=== PATIENT | female | born 1960 | race Caucasian/White ===

== ENCOUNTER 2019-04-14 20:04 | Emergency (ER) | payer BC ==
[2019-04-14 20:08] VITALS: RESP 18; TEMP 98.5
[2019-04-14] MEDS ORDERED: ONDANSETRON 4 MG/2 ML VIAL IVP STA (20:27)
[2019-04-14] MEDS ORDERED: KETOROLAC 30 MG/ML 1 ML VIAL IVP STA (20:27)
[2019-04-14] MEDS ORDERED: SODIUM CHLORIDE 0.9% 500 ML 500 ML IV STA (20:27)
[2019-04-14] MEDS ORDERED: SODIUM CHLORIDE 0.9% 1,000 ML IV STA (20:27)
--- NOTE | 2019-04-14 20:36 | ED ---
Abdominal Pain HPI - General Chief Complaint: Abdominal Pain Stated Complaint: Abd pain Time Seen by Provider: 04/14/19 20:22 Source: patient Mode of arrival: ambulatory Limitations: no limitations - History of Present Illness Initial Comments: 59-year-old female patient presents to the emergency department today for evaluation of left flank and left-sided abdominal pain. Patient states that pain started 2 days ago and has been worsening. States that today she was having nausea and vomiting. Unable to keep down any food or fluids. States she has been chilled but denies fevers. States that she did have a singular episode of hematuria couple of days ago the pain started shortly after. He states that today the urine is brown in color. Denies any history of kidney stones or similar symptoms. She has had cholecystectomy and 2 hernia repairs. States she is having normal bowel movements. She denies any dysuria or urinary frequency. She denies chest pain, shortness of breath, or sweats. Patient denies any recent rash, numbness, tingling, dizziness, weakness, headache, visual changes, or any other complaints. - Related Data Home Medications Medication Instructions Recorded Confirmed Levothyroxine Sodium [Synthroid] 88 mcg PO DAILY 04/14/19 04/14/19 Multivitamins, Thera [Multivitamin 1 tab PO DAILY 04/14/19 04/14/19 (formulary)] [place]-3 Fatty Acids/Fish Oil [Fish 1 cap PO DAILY 04/14/19 04/14/19 Oil 1,000 mg Softgel] Previous Rx's Medication Instructions Recorded Ibuprofen [Motrin] 600 mg PO Q8HR PRN #30 tab 04/14/19 Ondansetron [Zofran ODT] 4 mg PO Q8HR PRN #10 tab 04/14/19 Tamsulosin HCl [Flomax] 0.4 mg PO DAILY #7 cap 04/14/19 Allergies Allergy/AdvReac Type Severity Reaction Status Date / Time No Known Allergies Allergy Verified 04/14/19 20:39 Review of Systems ROS Statement: Those systems with pertinent positive or pertinent negative responses have been documented in the HPI. ROS Other: All systems not noted in ROS Statement are negative. Past Medical History Past Medical History: Thyroid Disorder History of Any Multi-Drug Resistant Organisms: None Reported Past Surgical History: Cholecystectomy, Hernia Repair Additional Past Surgical History / Comment(s): eye Smoking Status: Current every day smoker Past Alcohol Use History: Occasional Past Drug Use History: Marijuana General Exam Limitations: no limitations General appearance: alert, in no apparent distress, other (This is a well- developed, well-nourished adult female patient in no acute distress. Vital signs upon presentation are temperature 98.5F, pulse 83, respirations 18, blood pressure 184/88, pulse ox 98% on room air.) Eye exam: Present: normal appearance, PERRL, EOMI. Absent: scleral icterus, conjunctival injection, periorbital swelling ENT exam: Present: normal exam, normal oropharynx, mucous membranes moist Respiratory exam: Present: normal lung sounds bilaterally. Absent: respiratory distress, wheezes, rales, rhonchi, stridor Cardiovascular Exam: Present: regular rate, normal rhythm, normal heart sounds. Absent: systolic murmur, diastolic murmur, rubs, gallop, clicks GI/Abdominal exam: Present: soft, normal bowel sounds. Absent: distended, tenderness, guarding, rebound, rigid Back exam: Present: normal inspection. Absent: CVA tenderness (R), CVA tenderness (L) Neurological exam: Present: alert, oriented X3, CN II-XII intact Psychiatric exam: Present: normal affect, normal mood Skin exam: Present: warm, dry, intact, normal color. Absent: rash Course Vital Signs 04/14/19 04/14/19 20:06 22:42 Temperature 98.5 F 98.5 F Pulse Rate 83 62 Respiratory 18 18 Rate Blood Pressure 184/88 143/89 O2 Sat by Pulse 98 96 Oximetry Medical Decision Making - Medical Decision Making 59-year-old female patient presents to the emergency department today for evaluation of left flank pain and left-sided abdominal pain. Physical examination did reveal left upper quadrant tenderness. Labs reviewed and showed mildly elevated white blood cell count felt to be reactive from pain. Urinalysis shows cloudy appearance with 1+ protein, 1+ ketones, large amount of blood, trace leukocyte esterase, greater than 182 red blood cells, 17 white bl ood cells, 5 hyaline casts, moderate urine mucus. Patient is afebrile normal vital signs. CT abdomen and pelvis without contrast was obtained and showed evidence for left hydronephrosis and hydroureter with no evidence for currently obstructing stone. Reports that this could be related to recently passed stone versus pyelonephritis. Given patient's urinalysis is felt more likely to be a recently passed stone. She'll be discharged with Flomax, anti-inflammatories, nausea medication. She'll be discharged follow up with her primary care physician for recheck in 1-2 days. She is instructed to follow up with urology if she needs to. Return parameters were discussed in detail. She verbalizes understanding and agrees with this plan. - Lab Data Result diagrams: 04/14/19 20:58 04/14/19 20:58 Lab Results 04/14/19 04/14/19 04/14/19 Range/Units 20:58 20:58 20:58 WBC 13.2 H (3.8-10.6) k/uL RBC 5.05 (3.80-5.40) m/uL Hgb 15.7 (11.4-16.0) gm/dL Hct 46.4 H (34.0-46.0) % MCV 91.8 (80.0-100.0) fL MCH 31.0 (25.0-35.0) pg MCHC 33.8 (31.0-37.0) g/dL RDW 12.9 (11.5-15.5) % Plt Count 272 (150-450) k/uL Neutrophils % 82 % Lymphocytes % 12 % Monocytes % 4 % Eosinophils % 1 % Basophils % 0 % Neutrophils # 10.8 H (1.3-7.7) k/uL Lymphocytes # 1.6 (1.0-4.8) k/uL Monocytes # 0.5 (0-1.0) k/uL Eosinophils # 0.2 (0-0.7) k/uL Basophils # 0.1 (0-0.2) k/uL Sodium 141 (137-145) mmol/L Potassium 3.7 (3.5-5.1) mmol/L Chloride 103 (98-107) mmol/L Carbon Dioxide 28 (22-30) mmol/L Anion Gap 10 mmol/L BUN 16 (7-17) mg/dL Creatinine 0.91 (0.52-1.04) mg/dL Est GFR (CKD-EPI)AfAm 81 (>60 ml/min/1.73 sqM) Est GFR (CKD-EPI)NonAf 70 (>60 ml/min/1.73 sqM) Glucose 129 H (74-99) mg/dL Calcium 10.0 (8.4-10.2) mg/dL Total Bilirubin 0.6 (0.2-1.3) mg/dL AST 28 (14-36) U/L ALT 26 (9-52) U/L Alkaline Phosphatase 114 (38-126) U/L Total Protein 7.8 (6.3-8.2) g/dL Albumin 4.6 (3.5-5.0) g/dL Amylase 49 (30-110) U/L Lipase 62 (23-300) U/L Urine Color Light Red Urine Appearance Cloudy H (Clear) Urine pH 6.0 (5.0-8.0) Ur Specific [place] 1.018 (1.001-1.035) Urine Protein 1+ H (Negative) Urine Glucose (UA) Negative (Negative) Urine Ketones 1+ H (Negative) Urine Blood Large H (Negative) Urine Nitrite Negative (Negative) Urine Bilirubin Negative (Negative) Urine Urobilinogen 3.0 (<2.0) mg/dL Ur Leukocyte Esterase Trace H (Negative) Urine RBC >182 H (0-5) /hpf Urine WBC 17 H (0-5) /hpf Hyaline Casts 5 H (0-2) /lpf Urine Mucus Moderate H (None) /hpf - Radiology Data Radiology results: report reviewed, image reviewed CT abdomen and pelvis without contrast was obtained. Report was reviewed in its entirety. Impression by Dr. Estrada shows mild left hydronephrosis and perinephric inflammation. No obstructing calculus is evident. These findings may be due to recently passed calculus versus pyelonephritis. Nonobstructing left renal calculus. 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 Colonic diverticulosis without evidence of diverticulitis. Disposition Clinical Impression: Kidney stone on left side Disposition: HOME SELF-CARE Condition: Good Instructions (If sedation given, give patient instructions): Kidney Stones (ED) Additional Instructions: Increase fluids. Take medication as directed. Follow up with your primary care physician for recheck in 1-2 days. Follow-up with urology for recheck as needed. Return to the emergency department immediately for any new, worsening, or concerning symptoms. Prescriptions: Tamsulosin HCl [Flomax] 0.4 mg PO DAILY #7 cap Ibuprofen [Motrin] 600 mg PO Q8HR PRN #30 tab PRN Reason: Pain Ondansetron [Zofran ODT] 4 mg PO Q8HR PRN #10 tab PRN Reason: Nausea Is patient prescribed a controlled substance at d/c from ED?: No Referrals: Ciro Lu DO [Primary Care Provider] - 1-2 days Jemal Barr MD [STAFF PHYSICIAN] - 1-2 days Time of Disposition: 22:29
[2019-04-14 21:11] LABS: Basophils # (A) 0.1 k/uL (0-0.2); Basophils % (A) 0 %; Eosinophils # (A) 0.2 k/uL (0-0.7); Eosinophils % (A) 1 %; HCT 46.4 % (34.0-46.0); HGB 15.7 gm/dL (11.4-16.0); Lymphocytes # (A) 1.6 k/uL (1.0-4.8); Lymphocytes % (A) 12 %; MCHC 33.8 g/dL (31.0-37.0); MCV 91.8 fL (80.0-100.0); Mean Platelet Volume 6.1; Monocytes # (A) 0.5 k/uL (0-1.0); Monocytes % (A) 4 %; Neutrophils # (A) 10.8 k/uL (1.3-7.7); Neutrophils % (A) 82 %; Platelet Count 272 k/uL (150-450); RBC 5.05 m/uL (3.80-5.40); RDW 12.9 % (11.5-15.5); WBC 13.2 k/uL (3.8-10.6)
[2019-04-14 21:16] LABS: Appearance,Urine Cloudy (Clear); Bilirubin,Urine Negative (Negative); Blood,Urine Large (Negative); Color,Urine Light Red; Glucose,Urine (UA) Negative (Negative); Hyaline Casts,Urine 5 /lpf (0-2); Ketones,Urine 1+ (Negative); Leukocyte Esterase,Urine Trace (Negative); Mucus,Urine Moderate /hpf; Nitrite,Urine Negative (Negative); Protein,Urine 1+ (Negative); RBC,Urine >182 /hpf (0-5); Specific Gravity,Urine 1.018 (1.001-1.035)
[2019-04-14 21:19] LABS: Albumin 4.6 g/dL (3.5-5.0); Potassium 3.7 mmol/L (3.5-5.1); Total Bilirubin 0.6 mg/dL (0.2-1.3); Total Protein 7.8 g/dL (6.3-8.2)
--- NOTE | 2019-04-14 21:46 | CT ---
EXAMINATION TYPE: CT abdomen pelvis wo con DATE OF EXAM: 04/14/2019 COMPARISON: None. HISTORY: Left sided abdominal pain. Hematuria. CT DLP: 429.5 mGycm Automated exposure control for dose reduction was used. TECHNIQUE: Helical acquisition of images was performed from the lung bases through the pelvis withou t intravenous or oral contrast. FINDINGS: Evaluation of visceral abnormalities and adenopathy is limited due to lack of intravenous contrast. Emphysematous changes are present notably at the right lower lobe. No enlargement of the liver or spleen. Noncontrast appearance of the pancreas is within normal limits . Mild thickening of the left adrenal gland relative to the right. Surgically absent gallbladder. Mild left hydronephrosis, left renal enlargement, perinephric inflammation without obstructing calcul us visualized. Punctate nonobstructing left renal stone noted. Superior pole left renal lesion measur ing 7 mm demonstrates internal fat attenuation, compatible with angiomyolipoma. Normal appearance of the right kidney. Urinary bladder is within normal limits without calculus. Pelvic phlebolith noted o n the left. Uterus is present. Colonic diverticula without acute inflammation. No dilated bowel, free air, or free fluid. Morphologi alan normal appendix. Aortoiliac vascular calcifications without aneurysm. No enlarged lymph nodes. Convex right lumbar curvature with moderate to advanced degenerative changes of the lumbar spine. IMPRESSION: 1. Mild left hydronephrosis and perinephric inflammation. No obstructing calculus is evident. These f indings may be due to recently passed calculus versus pyelonephritis. 2. Nonobstructing left renal calculus. 3. 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 4. Colonic diverticulosis without evidence of diverticulitis.
[2019-04-14] MEDS ORDERED: ONDANSETRON 4 MG ODT STARTER PACK 2 TAB BTL PO STA (22:26)
[2019-04-14] MEDS ORDERED: IBUPROFEN 600 MG STARTER PACK 4 TAB BTL PO STA (22:26)
[2019-04-14] MEDS ORDERED: TAMSULOSIN 0.4 MG CAP.ER.24H PO STA (22:26)
[2019-04-14 22:43] VITALS: BP 143/89; PULSE 62
== END 2019-04-14 22:48 | disposition home or self-care (01) ==
LOC: EC 20:04
DX: N13.2 Hydronephrosis with renal and ureteral calculous obstruction (principal); D72.829 Elevated white blood cell count, unspecified; E07.9 Disorder of thyroid, unspecified; F17.200 Nicotine dependence, unspecified, uncomplicated; Z90.49 Acquired absence of other specified parts of digestive tract; Z98.890 Other specified postprocedural states; Z79.890 Hormone replacement therapy
CPT/HCPCS: 36415; 80053; 82150; 83690; 85025; 81001; 87086; 74176; 99284; 96374; 96375; 96361 ×2; J2405; J1885; S0119